=== PATIENT | male | born 1985 | race Hispanic/Latino ===

== ENCOUNTER 2021-10-04 11:41 | Inpatient (IN) | payer BC ==
[~2021-10-04] VITALS: Ht 170.2 cm; Wt 170.6 kg
[2021-10-04] MEDS ORDERED: 0.9%NACL 1000ML 1,000 ML IV ONE (12:00)
[2021-10-04] MEDS ORDERED: DILTIAZEM 25MG INJ IVP ONE ×2 (12:00→13:00)
[2021-10-04 12:02] LABS: BASOPHILS % (AUTO) 0.4 % (0.0-5.0); EOSINOPHILS % (AUTO) 0.2 % (0.0-8.0); LYMPHOCYTES % (AUTO) 14.8 % (21.0-51.0); MEAN CORPUSCULAR HEMOGLOBIN 30.3 pg (27.0-33.0); MEAN CORPUSCULAR HGB CONC 33.7 g/dL (32.0-36.0); MONOCYTES % (AUTO) 5.7 % (3.0-13.0); NEUTROPHILS % (AUTO) 78.5 % (40.0-77.0); PLATELET COUNT (AUTO) 268 K/uL (130-400); RED BLOOD CELL COUNT(AUTO) 5.11 MIL/uL (4.50-6.20); RED CELL DISTRIBUTION WIDTH 12.8 % (11.0-15.5)
[2021-10-04 12:11] LABS: CREATININE 0.9 mg/dL (0.5-1.5); POTASSIUM 3.9 mmol/L (3.5-5.1)
[2021-10-04 12:23] LABS: MAGNESIUM 1.7 mg/dL (1.80-2.40); THYROID STIMULATING HORMONE 0.59 uIU/mL (0.36-3.74); TOTAL PROTEIN, SERUM 8.3 g/dL (6.0-8.3)
[2021-10-04 12:46] LABS: B-TYPE NATRIURETIC PEPTIDE 21 pg/mL (0-100)
[2021-10-04] MEDS ORDERED: MAGNESIUM 2GM PREMIX 50ML 50 ML IV SCH (14:00)
[2021-10-04 14:04] LABS: AMPHET/METH SCREEN,URINE NEGATIVE (NEGATIVE); BARBITURATE SCREEN, URINE NEGATIVE (NEGATIVE); BENZODIAZEPINES SCREEN,URINE NEGATIVE (NEGATIVE); CANNABINOID SCREEN,URINE NEGATIVE (NEGATIVE); COCAINE SCREEN,URINE NEGATIVE (NEGATIVE); OPIATE SCREEN,URINE NEGATIVE (NEGATIVE); PHENCYCLIDINE SCREEN,URINE NEGATIVE (NEGATIVE)
[2021-10-04] MEDS ORDERED: MIDAZOLAM HCL 5 MG/ML 2ML VIAL IV ONE (14:27)
[2021-10-04] MEDS ORDERED: MIDAZOLAM HCL 1 MG/ML 5ML VIAL IVP ONE (14:30)
[2021-10-04] MEDS ORDERED: FENTANYL CITRATE PF 50 MCG/1 ML 2ML VIAL ONE (14:34)
[2021-10-04] MEDS ORDERED: AMIODARONE 900MG VIAL 540 MG in DEXTROSE 5%-WATER 300 ML IV STA (14:50)
[2021-10-04] MEDS ORDERED: AMIODARONE 900MG VIAL 150 MG in DEXTROSE 5%-WATER 100 ML IV SCH (15:00)
[2021-10-04] MEDS ORDERED: AMIODARONE 900MG VIAL 360 MG in DEXTROSE 5%-WATER 200 ML IV SCH (15:00)
[2021-10-04] MEDS ORDERED: FENTANYL CITRATE PF 50 MCG/1 ML 2ML VIAL IVP ONE (15:00)
[2021-10-04] MEDS ORDERED: METF-527 PO (16:20)
[2021-10-04] MEDS ORDERED: FAMO40TA7 PO (16:21)
[2021-10-04] MEDS ORDERED: BISO5TAB19 PO (16:21)
[2021-10-04] MEDS ORDERED: CETI-89 PO (16:22)
[2021-10-04] MEDS ORDERED: CYAN-52 PO (16:22)
[2021-10-04] MEDS ORDERED: DILTIAZEM 25MG INJ IVP PRN (17:00)
[2021-10-04] MEDS ORDERED: ONDANSETRON 4MG INJ IV PRN (17:00)
[2021-10-04] MEDS ORDERED: DILTIAZEM 125 MG/25 ML INJ 125 MG in 0.9%NACL 100ML 100 ML IV PRN (17:00)
[2021-10-04] MEDS ORDERED: ACETAMINOPHEN 325 MG TAB PO PRN ×2 (17:00)
[2021-10-04] MEDS ORDERED: HEPARIN 25,000 UNITS/250ML D5W 250 ML IV SCH (17:00)
[2021-10-04 17:24] LABS: INR 0.99 (0.85-1.15); PROTHROMBIN TIME 10.8 SEC (9.6-11.6)
[2021-10-04 17:25] LABS: PARTIAL THROMBOPLASTIN TIME 29.7 SEC (26.3-35.5)
[2021-10-04] MEDS ORDERED: HEPARIN 5,000 UNIT VIAL ONE (17:31)
[2021-10-04 18:13] LABS: BASOPHILS % (AUTO) 0.4 % (0.0-5.0); EOSINOPHILS % (AUTO) 0.7 % (0.0-8.0); HEMATOCRIT 45.7 % (42-54); LYMPHOCYTES % (AUTO) 22.5 % (21.0-51.0); MEAN CORPUSCULAR HEMOGLOBIN 30.1 pg (27.0-33.0); MEAN CORPUSCULAR HGB CONC 32.8 g/dL (32.0-36.0); MEAN CORPUSCULAR VOLUME 91.8 fL (79-99); MONOCYTES % (AUTO) 10.5 % (3.0-13.0); NEUTROPHILS % (AUTO) 65.5 % (40.0-77.0); PLATELET COUNT (AUTO) 225 K/uL (130-400); RED BLOOD CELL COUNT(AUTO) 4.98 MIL/uL (4.50-6.20); RED CELL DISTRIBUTION WIDTH 12.9 % (11.0-15.5); WHITE BLOOD COUNT (AUTO) 10.7 K/uL (4.8-10.8)
[2021-10-04 18:53] VITALS: BP 94/58
[2021-10-04 19:26] VITALS: BP 102/56
[2021-10-04] MEDS ORDERED: FAMOTIDINE 20MG VIAL IV SCH (21:00)
[2021-10-04] MEDS: FAMOTIDINE 20MG TAB PO SCH (22:34)
[2021-10-04 22:46] VITALS: BP 103/57
[2021-10-04] MEDS ORDERED: DILTIAZEM 50MG VIAL IV ONE (22:52)
[2021-10-05 04:21] VITALS: BP 102/57
[2021-10-05 04:25] LABS: BASOPHILS % (AUTO) 0.7 % (0.0-5.0); EOSINOPHILS % (AUTO) 1.3 % (0.0-8.0); HEMATOCRIT 44.1 % (42-54); LYMPHOCYTES % (AUTO) 36.9 % (21.0-51.0); MEAN CORPUSCULAR HEMOGLOBIN 29.9 pg (27.0-33.0); MEAN CORPUSCULAR HGB CONC 33.3 g/dL (32.0-36.0); MEAN CORPUSCULAR VOLUME 89.6 fL (79-99); MONOCYTES % (AUTO) 8.2 % (3.0-13.0); NEUTROPHILS % (AUTO) 52.7 % (40.0-77.0); PLATELET COUNT (AUTO) 218 K/uL (130-400); RED BLOOD CELL COUNT(AUTO) 4.92 MIL/uL (4.50-6.20); RED CELL DISTRIBUTION WIDTH 13.1 % (11.0-15.5); WHITE BLOOD COUNT (AUTO) 8.2 K/uL (4.8-10.8)
[2021-10-05 04:49] LABS: ALBUMIN 3.5 g/dL (3.5-5.0); CREATININE 0.8 mg/dL (0.5-1.5); POTASSIUM 3.3 mmol/L (3.5-5.1); TOTAL PROTEIN, SERUM 7.5 g/dL (6.0-8.3)
[2021-10-05 07:00] VITALS: BP 109/62
[2021-10-05] MEDS ORDERED: LIDOCAINE HCL-MPF 1% 2ML VIAL IV PRN (07:00)
[2021-10-05] MEDS ORDERED: POTASSIUM CHLORIDE 20MEQ/100ML 100 ML IV PRN (07:00)
[2021-10-05] MEDS ORDERED: MIDAZOLAM HCL 1 MG/ML 2ML VIAL IV PRN (08:00)
[2021-10-05] MEDS ORDERED: FENTANYL CITRATE PF 50 MCG/1 ML 2ML VIAL IVP PRN (08:00)
[2021-10-05] MEDS: FAMOTIDINE 20MG TAB PO SCH (09:00)
[2021-10-05 11:00] VITALS: BP 95/54
[2021-10-05] MEDS ORDERED: BISO5TAB19 PO (13:45)
== END 2021-10-05 15:58 | disposition home or self-care (01) | DRG 309 ==
LOC: EDH 11:41 → EDHIP 16:47 → 2AH 18:51
PROVIDERS: ADMIT Hospitalist; ATTEND Hospitalist
PROC: 5A2204Z Restoration of Cardiac Rhythm, Single (ICD-10-PCS; principal; 2021-10-05)
DX: I48.0 Paroxysmal atrial fibrillation (principal); Z68.43 Body mass index [BMI] 50.0-59.9, adult; I48.92 Unspecified atrial flutter; G47.33 Obstructive sleep apnea (adult) (pediatric); E66.01 Morbid (severe) obesity due to excess calories; Z88.0 Allergy status to penicillin; F41.9 Anxiety disorder, unspecified; Z90.49 Acquired absence of other specified parts of digestive tract; Z88.8 Allergy status to other drugs, medicaments and biological substances; Z83.3 Family history of diabetes mellitus; E11.9 Type 2 diabetes mellitus without complications; I10 Essential (primary) hypertension
CPT/HCPCS: 36415; 71045; 80053; 80305; 82948; 83735; 83880; 84443; 84484; 85025; 85378; 85610; 85730; 93005; 93970; 99291; G0378; J0282; J1644; J2250; J3010; J3475; J3490; J7060

== ENCOUNTER 2024-06-08 16:48 | Observation (INO) | payer BC ==
[~2024-06-08] VITALS: Ht 167.6 cm; Wt 159.3 kg
[~2024-06-08 16:48] MED LIST: BISO5TAB19 PO; CETI-89 PO; CYAN-52 PO; FAMO40TA7 PO; METF-527 PO
[2024-06-08 19:24] LABS: HEMATOCRIT 43.5 % (42-54); MEAN CORPUSCULAR HEMOGLOBIN 30.3 pg (27.0-33.0); MEAN CORPUSCULAR HGB CONC 33.1 g/dL (32.0-36.0); MEAN CORPUSCULAR VOLUME 91.4 fL (79-99); PLATELET COUNT (AUTO) 249 K/uL (130-400); RED BLOOD CELL COUNT(AUTO) 4.76 MIL/uL (4.50-6.20); RED CELL DISTRIBUTION WIDTH 13.1 % (11.0-15.5); WHITE BLOOD COUNT (AUTO) 9.8 K/uL (4.8-10.8)
[2024-06-08 19:54] LABS: ALBUMIN 3.8 g/dL (3.5-5.0); BILIRUBIN,TOTAL 0.9 mg/dL (0.2-1.0); MAGNESIUM 1.8 mg/dL (1.80-2.40); POTASSIUM 3.9 mmol/L (3.5-5.1); THYROID STIMULATING HORMONE 1.01 uIU/mL (0.36-3.74); TOTAL PROTEIN, SERUM 8.3 g/dL (6.0-8.3)
[2024-06-08 19:55] LABS: B-TYPE NATRIURETIC PEPTIDE 179 pg/mL (0-100)
[2024-06-08 20:13] LABS: LYMPHOCYTES % (MANUAL) 27 % (22-44); MONOCYTES % (MANUAL) 6 % (2-9); SEGMENTED NEUTROPHILS % 67 % (40-70); TOTAL CELLS COUNTED 100
[2024-06-08 20:16] LABS: MAN.DIFF COMMENT-IMPRESSION MANUAL DIFFERENTIAL; WBC MORPHOLOGY CONSISTENT W/DIFF
[2024-06-08 20:17] LABS: PLATELET MORPHOLOGY COMMENT ADEQUATE
--- NOTE | 2024-06-08 20:24 | NUR ---
PATIENT BROUGHT BACK TO [facility] A[facility] AT THIS TIME
--- NOTE | 2024-06-08 20:33 | NUR ---
REPORT GIVEN TO JOHNY HERNANDEZ
[2024-06-08 20:50] VITALS: BP 106/73; PULSE 80; RESP 22; TEMP 97.8
[2024-06-08 21:31] VITALS: O2SAT 99
--- NOTE | 2024-06-08 21:45 | HMCIMG ---
CHEST 1VW HISTORY: Persistent atrial fibrillation COMPARISON: 10/04/2021 FINDINGS: A frontal projection of the chest was obtained. No acute pulmonary infiltrates is seen. The heart is normal in size. Prominent interstitial markings are seen. No evidence of aortic calcification is seen. IMPRESSION: 1. No acute pulmonary infiltrate is seen.
[2024-06-08] MEDS ORDERED: dilTIAZem 125 MG/25 ML INJ 125 MG in 0.9%NACL 100ML 100 ML IV SCH (22:00)
[2024-06-08] MEDS: APIXaban 5 MG TABLET PO SCH (23:14)
[2024-06-08] MEDS: DRONEDARONE HYDROCHLORIDE 400 MG TABLET PO SCH (23:14)
[2024-06-09 00:30] VITALS: BP 115/57; PULSE 84; RESP 20; TEMP 98
[2024-06-09 04:00] VITALS: BP 104/72; PULSE 101; RESP 18; TEMP 98.4
[2024-06-09] MEDS ORDERED: MAGNESIUM 2GM PREMIX 50ML 50 ML IV PRN (04:30)
[2024-06-09] MEDS ORDERED: DRON400T7 PO (07:28)
[2024-06-09] MEDS ORDERED: APIX5TAB PO (07:28)
[2024-06-09] MEDS ORDERED: METO25 PO (07:28)
[2024-06-09] MEDS ORDERED: DOCU100C33 PO (07:28)
[2024-06-09] MEDS ORDERED: CETI10TA87 PO (07:28)
[2024-06-09] MEDS ORDERED: METF-910 PO (07:28)
--- NOTE | 2024-06-09 07:53 | EKG ---
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
[2024-06-09 08:00] VITALS: O2SAT 99
[2024-06-09 08:05] VITALS: BP 114/63; PULSE 87; RESP 20; TEMP 97.8
[2024-06-09] MEDS ORDERED: proPOFol 10 MG/ML 20ML VIAL IV ONE (09:29)
--- NOTE | 2024-06-09 10:57 | EKG ---
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
[2024-06-09 11:02] VITALS: BP 120/62; PULSE 63; RESP 20; TEMP 98.1
== END 2024-06-09 13:30 | disposition home or self-care (01) ==
LOC: EDH 16:48 → EDHIP 18:38 → 2DH 20:20
PROVIDERS: ADMIT Internal Medicine Cardiovascular Disease; ATTEND Internal Medicine Cardiovascular Disease
DX: I48.19 Other persistent atrial fibrillation (principal); E87.6 Hypokalemia; Z79.899 Other long term (current) drug therapy; Z88.0 Allergy status to penicillin; Z98.890 Other specified postprocedural states
CPT/HCPCS: 84443; 83735; 80053; 83880; 85025; 36415; 71045; 93005 ×2; G0378 ×19; G0379; J3490; J2704